=== PATIENT | male | born 1965 | race Caucasian/White ===

== ENCOUNTER → 2017-01-30 | Outpatient (CLI) | payer OTHER ==
[~2017-01-30] MED LIST: ASPIRIN 325MG325 MG PO; DICLOFENAC SODI75 M2 PO; OMEPRAZOLE20 MG PO; VALSARTAN AND H1 TA2 PO
--- NOTE | 2017-01-30 13:21 | CARDIOVASCULAR REPORT ---
"Venous Exam Indications: 729.5 Pain in limb. 782.3 Edema. IMPRESSIONS 1. There is no evidence of significant Reflux. 2. No evidence of deep or superficial vein thrombosis involving the right lower extremity History: Risk factors: Obese. Pt weight 410lb, 6'4". Recent trauma. Medications: Aspirin, 325 mg PO daily. Right lower extremity venous duplex evaluation. Doppler flow study including spectral analysis, color and levine scale imaging. Location: Vascular laboratory. Patient status: Outpatient. CRITICAL FINDINGS - Reported to: Aurora akhtar's rn - Read back and verified. - 01/30/17 - 1315 - Negative Tables: Venous flow and imaging: + + + + + |Location |Overall |Flow properties |Comments | + + + + + |Right common femoral|Patent |Normal phasicity; | | | | |spontaneous; normal| | | | |augmentation; | | | | |compressible | | + + + + + |Right saphenofemoral|Not | | | |junction |visualized | | | + + + + + |Right profunda |Not | | | |femoral |visualized | | | + + + + + |Right femoral |Patent |Normal phasicity; | | | | |spontaneous; normal| | | | |augmentation; | | | | |compressible | | + + + + + |Right greater |Patent |Normal phasicity; | | |saphenous | |spontaneous; normal| | | | |augmentation; | | | | |compressible | | + + + + + |Right popliteal |Patent |Normal phasicity; | | | | |spontaneous ; | | | | |normal | | | | |augmentation; | | | | |compressible | | + + + + + |Right posterior |Patent |Compressible |Visualized only | |tibial | | |a small distal | | | | |portion due to | | | | |leg size. | + + + + + |Right peroneal |Not | | | | |visualized | | | + + + + + |Right gastrocnemius |Patent |Compressible | | + + + + + |Right soleal |Patent |Compressible | | + + + + + (Report amended ) Electronically signed by: Craig Mckay [id number]"
== END ==
LOC: RT 12:21
DX: M79.604 Pain in right leg (principal); R60.9 Edema, unspecified